=== PATIENT | female | born 1985 | race Caucasian/White ===

== ENCOUNTER 2017-11-13 21:56 | Emergency (ER) | payer MEDICAID ==
[2017-11-13 22:02] VITALS: BP 147/82; PULSE 82; TEMP 99.2; O2SAT 98
--- NOTE | 2017-11-13 23:22 | C.PDOC ---
History Of Present Illness 32 year old female presents to the ER with a complaint of left parasternal chest pain that is positionally and digitally reproducible for the past 2 days. 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 Denies nausea, vomiting, or SOB. Time Seen by Provider: 11/13/17 23:09 Chief Complaint (Nursing): Chest Pain History Per: Patient History/Exam Limitations: no limitations Onset/Duration Of Symptoms: Days Current Symptoms Are (Timing): Still Present Associated Symptoms: denies: Nausea, Dyspnea, Diaphoresis, Syncope Modifying Factors: None Exacerbating Factors: Movement Alleviating Factors: None Recent travel outside of the [place]: No Past Medical History Reviewed: Historical Data, Nursing Documentation, Vital Signs Vital Signs: Last Vital Signs Temp 99.2 F 11/13/17 22:00 Pulse 82 11/13/17 22:00 Resp 20 11/13/17 23:35 BP 147/82 11/13/17 22:00 Pulse Ox 98 11/13/17 23:22 - Medical History PMH: HTN Surgical History: No Surg Hx Family History: States: Unknown Family Hx - Social History Hx Alcohol Use: Yes Hx Substance Use: No - Immunization History Hx Tetanus Toxoid Vaccination: No Hx Influenza Vaccination: No Hx Pneumococcal Vaccination: No Review Of Systems Constitutional: Negative for: Fever, Chills Cardiovascular: Negative for: Palpitations Respiratory: Negative for: Cough, Shortness of Breath Gastrointestinal: Negative for: Nausea, Vomiting Musculoskeletal: Positive for: Other (Left parasternal chest wall pain) Physical Exam - Physical Exam Appears: Non-toxic Skin: Normal Color, Warm, Dry Head: Atraumatic, Normacephalic Eye(s): bilateral: Normal Inspection Oral Mucosa: Moist Neck: Normal, Supple Chest: Tenderness (Digitally reproducible left parasternal at T4 and T5), No Other (Rash) Cardiovascular: Rhythm Regular Respiratory: Normal Breath Sounds, No Rales, No Rhonchi, No Wheezing Gastrointestinal/Abdominal: Soft, No Tenderness Back: No CVA Tenderness Extremity: Normal ROM (x4) Neurological/Psych: Oriented x3, Normal Speech ED Course And Treatment ECG: Interpreted By Me ECG Rhythm: Sinus Rhythm ECG Interpretation: Normal Rate From EC O2 Sat by Pulse Oximetry: 98 (Room air) Pulse Ox Interpretation: Normal Progress Note: EKG ordered. Motrin administered. Medical Decision Making Medical Decision Making: L parasternal costochondritis, no rash normal EKG acupressurist costochondritis Disposition Doctor Will See Patient In The: Office Counseled Patient/Family Regarding: Studies Performed, Diagnosis - Disposition Referrals: [facility] [Outside] [facility] [Outside] [facility] [[facility]] Disposition: HOME/ ROUTINE Disposition Time: 23:22 Condition: GOOD Additional Instructions: bolsa de hielo 1/2 hora por hora, nada caliente ibuprofeno 400-600 mg cada 6 horas clarissa necessario no levanta nada pesada por 1 semana regressa a jeffers trabajo normal Instructions: Costochondritis Forms: [employer] (Sami) Print Language: FRENCH - Clinical Impression Clinical Impression: Chest wall discomfort - Scribe Statement The provider has reviewed the documentation as recorded by the Scribe Felix Dumont All medical record entries made by the Scribe were at my direction and personally dictated by me. I have reviewed the chart and agree that the record accurately reflects my personal performance of the history, physical exam, medical decision making, and the department course for this patient. I have also personally directed, reviewed, and agree with the discharge instructions and disposition.
[2017-11-13 23:35] VITALS: RESP 20
--- NOTE | 2017-11-15 12:17 | CARD ---
APPROVED REPORT Date of service: 11/13/2017 EKG Measurement Heart [id number] 140P92 [id number] <Conclusion> Normal sinus rhythm Low voltage QRS Borderline ECG
== END 2017-11-13 23:35 | disposition home or self-care (01) ==
LOC: SUPCPDRO 21:56 → C.ER 21:56
DX: R07.89 Other chest pain (principal); I10 Essential (primary) hypertension

== ENCOUNTER 2018-04-30 22:27 | Emergency (ER) | payer MEDICAID ==
--- NOTE | 2018-05-01 | C.PDOC ---
History Of Present Illness 32 year old female presents to the ED for evaluation of left-sided chest pain which has been intermittent for around 3 years. Patient states pain is around her left sternal border and is non-radiating. She notes symptoms are worse with movement. Patient has been evaluated by a grape cutter from [employer] for these symptoms and has been told that she has "inflammation around her chest." Patient states she was under a lot of stress today due to the holidays and had an argument with her , after which she began experiencing these symptoms. Patient has taken 800mg Ibuprofen in the past and found relief of her symptoms. Patient has 800mg of Ibuprofen in her purse, but did not take it. She denies fever, chills, recent travel, recent illnesses, or any other associated symptoms. Time Seen by Provider: 04/30/18 23:08 Chief Complaint (Nursing): Chest Pain History Per: Patient History/Exam Limitations: no limitations Onset/Duration Of Symptoms: Hrs Current Symptoms Are (Timing): Still Present Quality: "Pain" Exacerbating Factors: Movement Recent travel outside of the [place]: No Additional History Per: Patient Past Medical History Reviewed: Historical Data, Nursing Documentation, Vital Signs Vital Signs: Last Vital Signs Temp 98.2 F 04/30/18 22:39 Pulse 90 04/30/18 22:39 Resp 14 04/30/18 22:39 BP 130/80 04/30/18 22:39 Pulse Ox 97 04/30/18 22:39 - Medical History PMH: HTN Surgical History: No Surg Hx Family History: States: Unknown Family Hx - Social History Hx Alcohol Use: Yes Hx Substance Use: No - Immunization History Hx Tetanus Toxoid Vaccination: No Hx Influenza Vaccination: No Hx Pneumococcal Vaccination: No Review Of Systems Constitutional: Negative for: Fever, Chills Cardiovascular: Positive for: Other (chest pain, around left sternal border ) Neurological: Negative for: Weakness, Numbness Physical Exam - Physical Exam Appears: Non-toxic, No Acute Distress Skin: Normal Color, Warm, Dry Head: Atraumatic, Normacephalic Eye(s): bilateral: Normal Inspection Oral Mucosa: Moist Neck: Supple Chest: Symmetrical, No Deformity, Tenderness (around left sternal border, on palpation ) Cardiovascular: Rhythm Regular, No Murmur Respiratory: Normal Breath Sounds, No Rales, No Rhonchi, No Wheezing Extremity: Normal ROM, Capillary Refill (less than 2 seconds ) Neurological/Psych: Oriented x3, Normal Speech, Normal Cognition ED Course And Treatment ECG: Interpreted By Me, Viewed By Me ECG Rhythm: Sinus Rhythm Interpretation Of ECG: Normal Sinus Rhythm at rate 99bpm. Rate From EC O2 Sat by Pulse Oximetry: 97 (on RA ) Pulse Ox Interpretation: Normal Disposition Counseled Patient/Family Regarding: Studies Performed, Diagnosis, Need For Followup - Disposition Referrals: [facility] [Outside] [facility] [Outside] Disposition: HOME/ ROUTINE Disposition Time: 23:58 Condition: GOOD Additional Instructions: CHRISTINA RAGSDALE, thank you for letting us take care of you today. Your provider was Maryellen Rider MD and you were treated for CHEST PAIN. The emergency medical care you received today was directed at your acute symptoms. If you were prescribed any medication, please fill it and take as directed. It may take several days for your symptoms to resolve. Return to the Emergency Department if your symptoms worsen, do not improve, or if you have any other problems. Please contact your doctor or call one of the physicians/clinics you have been referred to that are listed on the Patient Visit Information form that is included in your discharge packet. Bring any paperwork you were given at [facility] with you along with any medications you are taking to your follow up visit. Our treatment cannot replace ongoing medical care by a primary care provider outside of the emergency department. Thank you for allowing the [facility] team to be part of your care today. I Instructions: Costochondritis (DC) Forms: [employer] (Austrian), Gen Discharge Inst Austrian Print Language: ICELANDIC - POA Present On Arrival: None - Clinical Impression Clinical Impression: Chest wall pain - Scribe Statement The provider has reviewed the documentation as recorded by the Scribe (Camille De Luna) All medical record entries made by the Scribe were at my direction and personally dictated by me. I have reviewed the chart and agree that the record accurately reflects my personal performance of the history, physical exam, medical decision making, and the department course for this patient. I have also personally directed, reviewed, and agree with the discharge instructions and disposition.
[2018-05-01 00:14] VITALS: BP 124/80; PULSE 81; RESP 20; TEMP 98.5; O2SAT 98
--- NOTE | 2018-05-01 19:35 | CARD ---
APPROVED REPORT Date of service: 04/30/2018 EKG Measurement Heart [id number] 150P54 [id number] <Conclusion> Normal sinus rhythm Poor R wave progression. Borderline ECG
== END 2018-05-01 00:11 | disposition home or self-care (01) ==
LOC: C.ER 22:27
DX: R07.89 Other chest pain (principal); I10 Essential (primary) hypertension

== ENCOUNTER 2018-06-07 16:01 | Emergency (ER) | payer MEDICAID ==
--- NOTE | 2018-06-07 16:14 | C.PDOC ---
History Of Present Illness Patient is a 32 year old female who presents to the ED c/o palpitations that she has been experiencing for the past few days. She also notes mild SOB and states that she has had these symptoms in the past. Patient denies any fever, nausea, diaphoresis, cough, sick contacts, recent immobilizations or travel. Time Seen by Provider: 06/07/18 16:11 Chief Complaint (Nursing): Chest Pain History Per: Patient History/Exam Limitations: no limitations Onset/Duration Of Symptoms: Days Current Symptoms Are (Timing): Still Present Associated Symptoms: denies: Nausea, Diaphoresis Additional History Per: Patient Past Medical History Reviewed: Historical Data, Nursing Documentation, Vital Signs - Medical History PMH: HTN Surgical History: No Surg Hx Family History: States: Unknown Family Hx - Social History Hx Alcohol Use: Yes Hx Substance Use: No - Immunization History Hx Tetanus Toxoid Vaccination: No Hx Influenza Vaccination: No Hx Pneumococcal Vaccination: No Review Of Systems Constitutional: Negative for: Fever, Sweats Cardiovascular: Positive for: Palpitations Respiratory: Positive for: Shortness of Breath (mild). Negative for: Cough Gastrointestinal: Negative for: Nausea Physical Exam - Physical Exam Appears: Non-toxic, No Acute Distress Skin: Normal Color, Warm, Dry Head: Atraumatic, Normacephalic Oral Mucosa: Moist Neck: Normal ROM, Supple Chest: Symmetrical, No Deformity Cardiovascular: Rhythm Regular, No Murmur Respiratory: Normal Breath Sounds, No Rales, No Rhonchi, No Wheezing Gastrointestinal/Abdominal: Soft, No Tenderness, No Guarding, No Rebound Extremity: Normal ROM Neurological/Psych: Oriented x3, Normal Speech, Normal Cognition ED Course And Treatment - Laboratory Results Result Diagrams: 06/07/18 16:58 06/07/18 16:58 ECG Rhythm: Sinus Rhythm Rate From EC - Other Rad CXR X-Ray: Viewed By Me, Read By Radiologist Interpretation: IMPRESSION: No focal consolidation. Medical Decision Making Medical Decision Making: Plan: EKG, Labs, CXR ordered and reviewed. Disposition - Disposition Referrals: [facility] [Non-Staff] - Disposition: HOME/ ROUTINE Disposition Time: 21:00 Condition: GOOD Additional Instructions: CHRISTINA RAGSDALE, thank you for letting us take care of you today. The emergency medical care you received today was directed at your acute symptoms. If you were prescribed any medication, please fill it and take as directed. It may take several days for your symptoms to resolve. Return to the Emergency Department if your symptoms worsen, do not improve, or if you have any other problems. Please contact your doctor or call one of the physicians/clinics you have been referred to that are listed on the Patient Visit Information form that is included in your discharge packet. Bring any paperwork you were given at discharge with you along with any medications you are taking to your follow up visit. Our treatment cannot replace ongoing medical care by a primary care provider outside of the emergency department. Thank you for allowing the [facility] team to be part of your care today. Follow up with your primary care doctor in 2-3 days for re-evaluation and further management. Instructions: Palpitations (DC) Forms: [employer] (Puerto Rican) - Clinical Impression Clinical Impression: Palpitations - Scribe Statement The provider has reviewed the documentation as recorded by the Scribe Alee Rivas All medical record entries made by the Scribe were at my direction and persona lly dictated by me. I have reviewed the chart and agree that the record accurately reflects my personal performance of the history, physical exam, medical decision making, and the department course for this patient. I have also personally directed, reviewed, and agree with the discharge instructions and disposition.
[2018-06-07 17:03] LABS: BASO % 0.7 % (0.0-2.0); EOS # 0.1 K/uL (0.0-0.7); EOS % 1.2 % (0.0-4.0); LYMPH # 2.4 K/uL (1.0-4.3); MEAN CELL VOLUME 88.1 fL (81.0-99.0); MEAN CORPUSCULAR HEMOGLOBIN 28.8 pg (27.0-31.0); MEAN CORPUSCULAR HGB CONC 32.7 g/dL (33.0-37.0); MEAN PLATELET VOLUME 8.8 fL (7.2-11.7); MONO # 0.5 K/uL (0.0-0.8); MONO % 7.3 % (0.0-10.0); NEUT # 4.4 K/uL (1.8-7.0); NEUT % 58.8 % (50.0-75.0); NRBC % 0.1 % (0.0-2.0); RBC 4.17 Mil/uL (3.80-5.20); RED CELL DISTRIBUTION WIDTH 13.4 % (11.5-14.5); WHITE BLOOD COUNT 7.4 K/uL (4.8-10.8)
--- NOTE | 2018-06-07 17:03 | RAD ---
HISTORY: chest pain COMPARISON: None available. TECHNIQUE: Chest, one view. FINDINGS: LUNGS: No focal consolidation. Please note that chest x-ray has limited sensitivity for the detection of pulmonary masses. PLEURA: No significant pleural effusion identified. No definite pneumothorax . CARDIOVASCULAR: The cardiomediastinal silhouette appears within normal limits of size. No significant atherosclerotic calcification present. OSSEOUS STRUCTURES: No acute osseous abnormality identified. VISUALIZED UPPER ABDOMEN: Unremarkable. OTHER FINDINGS: None. IMPRESSION: No focal consolidation.
[2018-06-07 17:15] LABS: ALB/GLOB RATIO 1.3 (1.0-2.1); ALBUMIN 4.9 g/dL (3.5-5.0); BLOOD UREA NITROGEN 15 mg/dL (7-17); CALCIUM 9.5 mg/dl (8.6-10.4); GFR NON-AFRICAN AMERICAN > 60
[2018-06-07 17:19] LABS: ALT/SGPT 16 U/L (9-52); AST/SGOT 37 U/L (14-36)
[2018-06-07 17:44] LABS: T3 1.69 nmol/L (1.49-2.60)
[2018-06-07 19:14] VITALS: O2SAT 99
[2018-06-07 21:37] VITALS: BP 125/78; PULSE 84; RESP 20; TEMP 98.6
--- NOTE | 2018-06-08 12:03 | CT ---
Date of service: 06/07/2018 PROCEDURE: CT Chest with contrast (Pulmonary Angiogram) HISTORY: SOB r/o PE COMPARISON: None available. TECHNIQUE: Axial computed tomography images were obtained of the chest in the pulmonary arterial phase of enhancement. Coronal and sagittal reformatted images were created and reviewed. Intravenous contrast dose: Visipaque 320, 100 cc Radiation dose: Total exam DLP = 500.13 mGy-cm. This CT exam was performed using one or more of the following dose reduction techniques: Automated exposure control, adjustment of the mA and/or kV according to patient size, and/or use of iterative reconstruction technique. FINDINGS: PULMONARY ARTERIES: Unremarkable. No pulmonary embolism. AORTA: No acute findings. No thoracic aortic aneurysm. No aortic atherosclerotic calcification or mural plaque present. LUNGS: Unremarkable. No nodule, mass or pulmonary consolidation. PLEURAL SPACES: Unremarkable. No effusion or pneumothorax. HEART: Unremarkable. No cardiomegaly. No significant pericardial effusion. LYMPH NODES: No lymphadenopathy. BONES, CHEST WALL: Unremarkable. No fracture or destructive lesion OTHER FINDINGS: Unremarkable. IMPRESSION: Unremarkable CT pulmonary angiogram. No pulmonary embolus. Concordant preliminary report from [facility], 06/07/2018 9:16 p.m..
--- NOTE | 2018-06-11 10:08 | CARD ---
APPROVED REPORT Date of service: 06/07/2018 EKG Measurement Heart [id number] 140P64 [id number] <Conclusion> Normal sinus rhythm Normal ECG
== END 2018-06-07 21:37 | disposition home or self-care (01) ==
LOC: C.ER 16:01
DX: R00.2 Palpitations (principal)